=== PATIENT | female | born 1960 | race Caucasian/White ===

== ENCOUNTER 2021-05-23 02:18 | Day surgery (SDC) | payer BC, SELFPAY ==
[2021-05-11 13:14] VITALS: BMI 23.5
--- NOTE | 2021-05-23 07:59 | PM.HPGS ---
History of Present Illness History of Present Illness Consent: Risks, benefits, and alternatives have been discussed and questions answered. Patient agrees to proceed with procedure. Chief complaint: neoplasm screening Narrative: Natalie Hanson is a 61 year old female referred for colon cancer screening. Review of Systems Review of Systems: All systems reviewed & are unremarkable except as noted in HPI and below PMFSH Past Medical History Medical History Arthritis Rianna's thyroiditis Hypercholesterolemia Family History Family History Father Hypertension Family history of elevated blood lipids Family history of diabetes mellitus in first degree relative Mother Hypertension Family history of elevated blood lipids Family history of diabetes mellitus in first degree relative Social History Social History Smoking status: Never smoker Alcohol intake: current Substance use: never Substance use type: does not use Living arrangements: with family Spiritual care concerns: No Meds Home Medications and Allergies Home Medications Medication Instructions Recorded Confirmed Type fexofenadine [Reina] 180 mg PO DAILY 05/11/21 05/23/21 History pravastatin 40 mg PO DAILY 05/11/21 05/23/21 History sertraline 25 mg PO DAILY 05/11/21 05/23/21 History thyroid (pork) [[place] Thyroid] 30 mg PO DAILY 05/11/21 05/23/21 History Allergies Allergy/AdvReac Type Severity Reaction Status Date / Time Tetanus Vaccines and Toxoid Allergy Unknown Fever Verified 05/23/21 10:03 Exam Resp: Auscultation: clear to auscultation bilaterally Cardio: Rate: regular rate Rhythm: regular rhythm GI: GI Palp: Yes Soft to palpation and No Tenderness to palpation present (GI) Assessment and Plan Assessment and plan (1) Colon cancer screening: Code(s): Z12.11 - Encounter for screening for malignant neoplasm of colon Status: Acute Assessment and Plan: Colonoscopy with possible biopsy or polypectomy or cautery or injection of substances.
--- NOTE | 2021-05-23 08:40 | WPDANESEPPF ---
Anes - Initial Pre Proc Eval Procedure: Operation Date: 05/23/21 11:00 Proposed Procedures p Screening Colonoscopy - Mahendra Lebron MD Date/Time: 05/23/21 08:40 Surgeon: Mahendra Lebron MD Pre Op Diagnosis: neoplasm screening Patient Data Age: 61 Gender: F Height: 1.68 m Weight: 66 kg Allergies Allergy/AdvReac Type Severity Reaction Status Date / Time Tetanus Vaccines and Toxoid Allergy Unknown Fever Verified 05/23/21 10:03 Home Medications Medication Instructions Recorded Confirmed Type fexofenadine [Reina] 180 mg PO DAILY 05/11/21 05/23/21 History pravastatin 40 mg PO DAILY 05/11/21 05/23/21 History sertraline 25 mg PO DAILY 05/11/21 05/23/21 History thyroid (pork) [[place] Thyroid] 30 mg PO DAILY 05/11/21 05/23/21 History Patient hx anesthesia problems: none Family hx anesthesia problems: none Results Review: All pre-operative results and documents have been reviewed as part of the pre-operative evaluation. [facility] Past Medical History Medical History (Updated 05/23/21 @ 08:41 by Eloy William MD) Arthritis Rianna's thyroiditis Hypercholesterolemia Family History Family History (Updated 02/04/16 @ 23:19 by DOCTOR UNKNOWN) Father Hypertension Family history of elevated blood lipids Family history of diabetes mellitus in first degree relative Mother Hypertension Family history of elevated blood lipids Family history of diabetes mellitus in first degree relative Social History Social History Smoking status: Never smoker Alcohol intake: current Substance use: never Substance use type: does not use Living arrangements: with family Spiritual care concerns: No Anes - Eval Final PreProcedure Day of Procedure 05/23/21 08:40 Patient weight: normal Heart: regular rate and rhythm Lungs: clear to auscultation and normal air movement Airway: Mallampati scale class II Neurological: alert and oriented Last oral intake: >/= 8 hours ASA classification: II Emergent: no Anesthetic plan: proceed Anesthesia type and monitoring: general GIVS Results Review: All pre-operative results and documents have been reviewed as part of the pre-operative evaluation. Informed Consent: The patient's anesthetic plan and its attendant risks and benefits were discussed with the patient/family/POA. Questions were solicited and answers provided to the satisfaction of the patient/family/POA.
[2021-05-23 10:05] VITALS: BP 153/78; PULSE 95; RESP 16; TEMP 35.9; O2SAT 98; BMI 23.5
[2021-05-23] MEDS: LACTATED RINGERS 1,000 ML 150 ML IV CONT (10:18)
[2021-05-23 11:08] VITALS: BP 125/71; PULSE 74; RESP 15; O2SAT 100
[2021-05-23 11:18] VITALS: BP 132/75; PULSE 71; RESP 18; O2SAT 100
[2021-05-23 11:26] VITALS: BP 137/81; PULSE 70; RESP 20; O2SAT 100
== END 2021-05-23 11:40 | disposition home or self-care (01) ==
PROVIDERS: PCP Internal Medicine; Visit Provider Internal Medicine Gastroenterology
PROC: 0DJD8ZZ Inspection of Lower Intestinal Tract, Via Natural or Artificial Opening Endoscopic (ICD-10-PCS; CPT 45378; principal; 2021-05-23 11:00)
DX: Z12.11 Encounter for screening for malignant neoplasm of colon (principal); E06.3 Autoimmune thyroiditis; E78.00 Pure hypercholesterolemia, unspecified
CPT/HCPCS: 45378; J2704; J7120